=== PATIENT | female | born 1955 ===

== ENCOUNTER 2024-05-23 06:02 | Day surgery (SDC) | payer OTHER ==
[2024-05-16 08:37] VITALS: BP 128/77
[2024-05-16 08:42] LABS: HEMATOCRIT 36.1 % (36.0-45.00); HEMOGLOBIN 12.3 g/dL (12.0-15.00); MEAN CELL VOLUME 95.8 fL (80.00-100.00); MEAN CORPUSCULAR HEMOGLOBIN 32.8 pg (27.00-32.0); MEAN CORPUSCULAR HGB CONC 34.2 g/dl (32.0-36.0); PLATELET COUNT 217 K/uL (150-450); RED BLOOD COUNT 3.77 M/uL (4.00-6.00); RED CELL DISTRIBUTION WIDTH 13.7 % (11.5-14.5)
[2024-05-16 08:45] LABS: PH,URINE 5.5 (5.0-8.0); URINE APPEARANCE Clear; URINE BILIRRUBIN Negative (NEGATIVE); URINE BLOOD Small; URINE COLOR Yellow; URINE GLUCOSE Negative (NEGATIVE); URINE KETONE Negative (NEGATIVE); URINE LEUKOCYTE Small; URINE NITRATE Negative; URINE PROTEIN Negative (NEGATIVE); URINE UROBILINOGEN 0.2 E.U./dl
[2024-05-16 08:47] LABS: URINE BACTERIA 241.1 uL (0.0-1933); URINE EPITHELIAL CELLS 21.6 uL (0.0-38.8); URINE RBC 45.8 uL (0.0-20.8); URINE WBC 57.7 uL (0.0-23.2)
[2024-05-16 09:30] LABS: PARTIAL THROMBOPLASTIN TIME 27.6 SECONDS (22.0-34.0); PROTHROMBIN TIME 10.9 SECONDS (9.0-11.5)
[2024-05-16 09:36] LABS: ALBUMIN 3.4 gm/dL (3.4-5.0); BILIRUBIN TOTAL 0.64 mg/dL (0.3-1.2); CALCIUM 8.8 mg/dL (8.5-10.1); CREATININE SERUM 0.82 mg/dL (0.55-1.02); GFR 69.32; GLOBULINA 3.3 G/DL (2.4-3.5); POTASSIUM 4.32 mEq/L (3.5-5.1); TOTAL PROTEIN 6.7 gm/dL (6.4-8.2); TSH 2.61 uIU/mL (0.358-3.74)
[~2024-05-23] VITALS: Ht 165.1 cm; Wt 77.1 kg
[~2024-05-23 06:02] MED LIST: ACID REDUCER20 M1 PO; ATORVASTATIN CA10 MG PO; LEVO-T25 MCG PO; LIPOCHOL PLUS0.5 MG PO; MULTIPLE VITAM1 EAC2 PO; ZESTRIL5 MG PO
[2024-05-23] MEDS ORDERED: CEFOXITIN SODIUM 2,000 MG VIAL IV ONE (09:48)
[2024-05-23] MEDS ORDERED: POVIDONE-IODINE 118 ML BOTT TOP ONE (09:48)
[2024-05-23] MEDS ORDERED: PROMETHAZINE HCL 50 MG/ML AMPUL IM ONE (10:30)
[2024-05-23] MEDS ORDERED: MORPHINE SULFATE 4 MG/ML VIAL IV PRN (10:30)
[2024-05-23] MEDS ORDERED: NAPR500T14 PO (10:31)
[2024-05-23] MEDS ORDERED: MONODOX100 MG PO (10:31)
== END 2024-05-23 15:55 | disposition home or self-care (01) ==
LOC: CIR.AMB 06:02
PROVIDERS: ATTEND Obstetrics & Gynecology
DX: D25.0 Submucous leiomyoma of uterus (principal); N84.0 Polyp of corpus uteri; N95.0 Postmenopausal bleeding; I10 Essential (primary) hypertension; E78.5 Hyperlipidemia, unspecified; E03.8 Other specified hypothyroidism